=== PATIENT | male | born 1965 | race Caucasian/White ===

== ENCOUNTER → 2016-09-23 | Outpatient (CLI) | payer BC ==
--- NOTE | 2016-09-23 08:32 | DI ---
Indication: ITS.REASON: R22.1 RIGHT POST NECK MASS PROCEDURE: US SOFT TISSUE NECK: Encounter: Initial Comparison: None Technique: Grayscale and color Doppler sonographic imaging of the right neck area of concern was performed. Findings/ Impression: In the area of palpable concern there is an oval isoechoic to fat nodule measuring 3.7 x 3.8 x 0.8 cm in size. This does not have internal vascularity. Findings are most consistent with a benign lipoma. .
== END ==
LOC: IMA 06:59
DX: R93.8 Abnormal findings on diagnostic imaging of other specified body structures (principal)

== ENCOUNTER 2016-10-24 06:08 | Day surgery (SDC) | payer BC ==
[~2016-10-24] VITALS: Ht 182.9 cm; Wt 105.3 kg
--- OUTSIDE RECORDS SUMMARY | 2016-10-24 06:12 | XMS REPORT | Referral Summary ---
Author Author [facility], [facility] Organization [facility] Address Unknown Phone Unavailable Care Team Providers Care Equity Director Name Role Phone Naren Tompkins Primary Care Physician [phone] Encounter VC Date(s): 12/25/14 - 12/25/14 [facility] [place], [address] [place] [id number]- Discharge Disposition: 01-Home or Self Care Attending Physician: Rigoberto Tompkins MD Admitting Physician: Rigoberto Tompkins MD Vital Signs Most recent to 1 oldest [Reference Range]: Peripheral Pulse 76 bpm Rate [60-100 bpm] (12/25/14 7:39 AM) Blood Pressure 136/86 mmHg [90-140/60-90 mmHg] (12/25/14 7:39 AM) Problem List Condition Effective Dates Status Health Status Informant Right shoulder Active pain(Confirmed) Allergies, Adverse Reactions, Alerts No Known Allergies Medications No Known Medications Results No data available for this section Immunizations No data available for this section Procedures Procedure Date Related Diagnosis Body Site Avulsion of nail plate, partial or complete, 12/25/14 simple; single Social History No data available for this section Assessment and Plan Extracted from: Title: Office Visit Note Author: Rigoberto Tompkins MD Date: 12/25/14 Assessment/Plan Ingrown toenail Plan: Procedure preformed today: Ingrown toenail removal with ablation. I discussed wound care with the patient. Leave dressing on until tomorrow morning. Elevate your leg today. If there is persistent bleeding today call the clinic or if emergent then go to the ER. Use triple antibiotic ointment daily starting tomorrow. Call or return to the clinic if you are having any problems with healing. Right shoulder pain Plan: I'm concerned that you have a rotator cuff tear. I would like you to see Dr. Peacock for that.
--- OUTSIDE RECORDS SUMMARY | 2016-10-24 06:12 | XMS REPORT | Continuity of Care Document ---
Author Author [facility] Organization [facility] Address Unknown Phone Unavailable Allergies Active Description Code Type Severity Reaction Onset Reported/Identified Relationship to Patient Clinical Status Yes No Known Allergies NKMA N/A N/A 12/25/2014 Medications Problems Procedures Results Encounters ACCT No. Visit Date/Time Discharge Status Pt. Type Provider Facility Loc./Unit Complaint [id number] 12/25/2014 08:08:00 2014 23:59:00 DIS Outpatient Rigoberto Tompkins [facility] New remove toenail
[2016-10-24 06:21] VITALS: Ht 182.9 cm; Wt 105.3 kg
[2016-10-24 06:22] VITALS: BP 127/69; PULSE 64; RESP 15; TEMP 98; O2SAT 96
[2016-10-24] MEDS ORDERED: LR 1,000 ML IV SCH (07:00)
[2016-10-24] MEDS ORDERED: LIDOCAINE 1% (10mg/ml) 2ml SDV INJ ONE (07:00)
--- NOTE | 2016-10-24 07:13 | ANESPREOP ---
Anesthesia Record Date and Time DATE: 10/24/16 TIME: 07:12 Proposed Surgical Procedure COLONOSCOPY NPO since: ma Allergies: Coded Allergies: meperidine HCl (Unverified Allergy, Unknown, 10/24/16) Ht/Wt/BMI Height: 6 ' 0.00 " Weight: 105.300 kg BMI: 31.5 kg/m2 Vital Signs Date Time Temp Pulse Resp B/P Pulse Ox O2 Delivery O2 Flow Rate FiO2 10/24/16 06:22 98.0 64 15 127/69 96 Room Air Medications Inpatient Medications Current Medications Medications (Trade) Dose Ordered Sig/Isaac Start Time Stop Time Status Last Admin Dose Admin Lactated Ringer's (Lactated Ringers) 1,000 ml @ 50 mls/hr Q20H 10/24/16 07:00 10/24/16 06:49 50 MLS/HR No Active Prescriptions or Reported Meds Currently on Beta Migel: No Medical/Surgical History Anesthesia PMH: Reports: Obesity, Reflux (denies) Smoking Status: Never smoker Use Chewing Tobacco?: No Second Hand Exposure: No Substance Use Type: does not use Alcohol Intake: none Past Surgical History Orthopedic Surgeries: Yes - L ELBOW,R LEG Abdominal Surgeries: Genitourinary Surgeries: Cardiac Surgeries: Endocrine Surgeries: Reproductive Surgeries: Neurological Surgeries: Ear Surgeries: Nose Surgeries: Throat Surgeries: Other Surgeries: Yes - CYST REMOVED FROM L EYE Anesthesia Adverse Reactions: FOUND none Family Hx of Anesthesia Advers: none Hx of Motion Sickness: No Physical Exam Respiratory: Bilat breath sounds equal, Lungs clear Cardiovascular: FOUND Regular rate, rhythm Airway Assessment Mallampati Score: II Neck Extension: Good Overall Assessment: No Airway Concerns ASA: 2 Plan Anesthesia Plan: TIVA, LMA Discussion Discussed risks/options/alternatives of anesthesia and questions answered. Patient consents. Nursing pain assessment noted. Present: Family Member Attestation Statement Prior to the delivery of any anesthetic medication, I examined the patient, developed the plan, obtained the patient's consent and discussed the risk and benefits of the procedure with the patient/guardian. RENNY AGUILAR CRNA October 24, 2016 07:13
[2016-10-24] MEDS ORDERED: PROPOFOL 500mg 50 ML IV ONE (07:23)
[2016-10-24] MEDS ORDERED: SIMETHICONE 67 MG/ML ORAL DROPS ONE (07:45)
[2016-10-24 07:54] VITALS: BP 95/55; PULSE 75; RESP 16; TEMP 97.4; O2SAT 94
[2016-10-24 08:05] VITALS: BP 94/54
[2016-10-24 08:08] VITALS: BP 94/54; PULSE 63; RESP 16; O2SAT 94
[2016-10-24 08:10] VITALS: BP 112/58; PULSE 69; RESP 20; O2SAT 95
[2016-10-24 08:24] VITALS: BP 117/75; PULSE 64; RESP 20; O2SAT 95
--- NOTE | 2016-10-24 08:33 | ANESPO ---
Post-Op Note Date 10/24/16 Time: 08:30 Status Pt Participated in Evaluation: Pt participated in person Vital Signs Date Time Temp Pulse Resp B/P Pulse Ox O2 Delivery O2 Flow Rate FiO2 10/24/16 08:24 64 20 117/75 95 Room Air 10/24/16 07:54 97.4 Respiratory Function: Airway patent, Regular respirations Cardiovascular Function: Regular pulse Mental Status: Alert/oriented Pain Level Intensity: 0 Hydration: Taking po fluids Complications during Recovery None apparent Follow-Up Instructions Instructions Per Surgeon RENNY AGUILAR CRNA October 24, 2016 08:33
--- NOTE | 2016-10-24 11:49 | OPNOTEF ---
[facility] DATE: 10/24/2016 PREOPERATIVE DIAGNOSIS: Screening colonoscopy. POSTOPERATIVE DIAGNOSIS: Screening colonoscopy - within normal limits. PROCEDURE: Colonoscopy. No biopsies taken. SURGEON: Ap Seymour MD ANESTHESIA: TIVA PROCEDURE NOTE: The patient was prepped with Colyte the evening prior to the procedure. He was placed in left lateral position. After a benign digital rectal exam, the colonoscope was inserted and advanced to the cecum with cecal landmarks identified. The cecum, ascending colon, transverse colon and sigmoid showed no evidence of hemorrhage, mass lesions, ulcerations, polyps or diverticular disease. No inflammatory changes were noted. The rectum and anus were clear. The colon was suctioned and the scope removed with the patient tolerating the procedure well. He was stable post colonoscopy. PATRICIA
== END 2016-10-24 08:30 | disposition home or self-care (01) ==
LOC: NSC 06:08
DX: Z12.11 Encounter for screening for malignant neoplasm of colon (principal); K21.9 Gastro-esophageal reflux disease without esophagitis; R03.0 Elevated blood-pressure reading, without diagnosis of hypertension; E66.9 Obesity, unspecified; Z68.31 Body mass index [BMI] 31.0-31.9, adult; Z79.899 Other long term (current) drug therapy; Z87.891 Personal history of nicotine dependence
CPT/HCPCS: 45378; J2704; J7120